=== PATIENT | male | born 1985 | race Caucasian/White ===

== ENCOUNTER 2019-09-18 20:40 | Emergency (ER) | payer OTHER ==
[~2019-09-18] VITALS: Ht 175.3 cm; Wt 138.3 kg
[2019-09-18 21:13] VITALS: Ht 175.3 cm; Wt 138.3 kg
[2019-09-18 22:52] VITALS: BP 145/71
== END 2019-09-18 22:52 | disposition home or self-care (01) ==
LOC: ED 20:40
DX: M25.561 Pain in right knee (principal); I10 Essential (primary) hypertension; M10.9 Gout, unspecified
CPT/HCPCS: J1885